=== PATIENT | female | born 1955 | race Hispanic/Latino ===

== ENCOUNTER 2020-08-12 11:40 | Inpatient (IN) | payer MEDICARE ==
[~2020-08-12 11:40] MED LIST: ACETAMINOPHEN 500 MG TAB PO SCH; CELECOXIB 200 MG CAP PO NR; GABAPENTIN 300 MG CAP PO NR
[2020-08-12] MEDS ORDERED: HEPARIN 5,000 UNIT/1 ML VIAL SUB-Q NR (12:45)
[2020-08-12] MEDS ORDERED: FAMOTIDINE 20 MG/2 ML INJ IV ONE (12:47)
[2020-08-12] MEDS ORDERED: HEPARIN 5,000 UNIT/1 ML VIAL ONE (12:47)
--- NOTE | 2020-08-12 12:48 | Anesthesia Consultation ---
Anesthesia Consult and Med Hx Date of service: 08/12/20 - Airway Anesthetic Teeth Evaluation: Good ROM Head & Neck: Adequate Mental/Hyoid Distance: Adequate Mallampati Class: Class II Intubation Access Assessment: Probably Good - Pre-Operative Health Status ASA Pre-Surgery Classification: ASA3 Proposed Anesthetic Plan: General - Pulmonary Hx Smoking: Yes (VAPES EVERYDAY) Hx Sleep Apnea: No - Cardiovascular System Hx Coronary Artery Disease: No (high cholesterol) - Central Nervous System Hx Back Pain: Yes (HERNIATED DISK. NO DISK BETWEEN L5-S1) Hx Psychiatric Problems: Yes (depression, sleep disorder) - Gastrointestinal Hx Gastroesophageal Reflux Disease: Yes (s/p partial pancreatic, colon resection) - Endocrine Hx Renal Disease: Yes (s/p left nephrectomy ) Hx End Stage Renal Disease: No Hx Non-Insulin Dependent Diabetes: Yes (as a result partial pancreatectomy) - Other Systems Hx Alcohol Use: No Hx Substance Use: Yes (VAPES EVERYDAY) Hx Cancer: Yes (left breast CA, s/p bilateral mastectomy, lest axillary lymphanodes removal)
[2020-08-12] MEDS ORDERED: BUPIVACAINE-EPINEPHRINE/PF 0.25%-1:200,000 (30 ML) VIAL INFILTRATI ONE ×4 (12:51→17:13)
[2020-08-12] MEDS ORDERED: BUPIVACAINE/PF (0.5%) 5 MG/1 ML 30 ML VIAL INFILTRATI ONE (12:51)
--- NOTE | 2020-08-12 12:51 | Anesthesia Day of Surgery ---
Anesthesia Day of Surgery - Day of Surgery Patient Examined: Yes Patient H&P Reviewed: Yes Patient is NPO: Yes
[2020-08-12] MEDS ORDERED: BUPIVACAINE/PF (0.25%) 2.5 MG/ML 30 ML VIAL INFILTRATI ONE (12:52)
[2020-08-12] MEDS ORDERED: FAMOTIDINE 20 MG/2 ML INJ IV SCH (13:00)
[2020-08-12] MEDS: LACTATED RINGERS 1,000 ML IV SCH ×2 (13:00→21:17)
[2020-08-12] MEDS ORDERED: ceFAZolin/STERILE WATER 2 GM/20 ML SYRINGE IV NR (13:00)
[2020-08-12] MEDS: MIDAZOLAM 2 MG/2 ML INJ IV NR ×2 (13:02→13:20)
[2020-08-12] MEDS ORDERED: propofoL 200 MG/20 ML VIAL IV ONE (13:44)
[2020-08-12] MEDS ORDERED: HYDROmorphone 1 MG/1 ML INJ ONE (13:44)
[2020-08-12] MEDS ORDERED: ROCURONIUM 50 MG/5 ML INJ IV ONE (13:46)
[2020-08-12] MEDS ORDERED: ONDANSETRON 4 MG/2 ML INJ IV PRN (14:41)
[2020-08-12] MEDS ORDERED: oxyCODONE /ACETAMINOPHEN 5-325MG TAB PO PRN (14:41)
[2020-08-12] MEDS ORDERED: ePHEDrine SULFATE 50 MG/1 ML INJ ONE (15:08)
[2020-08-12] MEDS ORDERED: LIDOCAINE MPF (2%) 20 MG/1 ML VIAL 5 ML ONE (17:06)
[2020-08-12] MEDS ORDERED: GLYCOPYRROLATE 0.4 MG/2 ML INJ ONE (17:06)
[2020-08-12] MEDS ORDERED: NEOSTIGMINE 10MG/10 ML INJ MDV ONE (17:06)
[2020-08-12] MEDS ORDERED: ONDANSETRON 4 MG/2 ML INJ ONE (17:06)
[2020-08-12] MEDS ORDERED: KETOROLAC 30 MG/1 ML INJ ONE (17:06)
--- NOTE | 2020-08-12 17:36 | Procedure Note ---
Date of procedure: 08/12/20 Pre-op diagnosis: Ventral hernia, incarcerated Post-op diagnosis: same Procedure: Open repair with mesh Description of procedure: Pt was placed supine on the OR table. GETA was administered. Spencer catheter was inserted. Abdomen was prepped and draped. A midline incision was made from the subxiphoid area to the umbilicus. The hernia sac was identified and was dissected down to it's fascial margins in all directions. The sac was incised and was found to contain incarcerated omentum. The omentum and small bowel were freed from the hernia sac and the anterior abdominal wall. The hernia sac was incised. The above noted mesh was placed within the peritoneal cavity against the abdominal wall fascia. The mesh was secured to the abdominal wall fascia with multiple interrupted sutures of 0- Ethibond which were placed about 1 cm apart about the periphery of the mesh. Wound was irrigated with warm saline. SQ tissue was approximated with a running suture of 3-0 Vicryl. Skin was approximated with hero and a running suture of 4-0 Nylon. Skin was dressed with a sterile absorbent dressing. Pt tolerated the procedure well. Pt was extubated in the OR and was taken to PACU in stable condition. Implants: Ventrio ST Hernia Patch, 13.8 X 17.8 cm, Lot [id number], exp 12/01/2021 Anesthesia: GETA Surgeon: YARA TINSLEY Estimated blood loss: minimal Pathology: list (Hernia sac) Specimen disposition: to lab Condition: stable Disposition: PACU
[2020-08-12] MEDS ORDERED: ACETAMINOPHEN 325 MG TAB PO PRN (17:41)
[2020-08-12] MEDS: HYDROmorphone 1 MG/1 ML INJ IV PRN ×4 (17:47→18:35)
--- NOTE | 2020-08-12 18:49 | Post Anesthesia Evaluation ---
- Post Anesthesia Evaluation Patient Participated: Yes Airway Patent: Yes Stable Respiratory Function: Yes Nausea/Vomiting: No Temp > 96.8F: Yes Pain Manageable: Yes Adequeate Hydration: Yes Anesthesia Complications: No
[2020-08-12] MEDS ORDERED: DEXTROSE 50% IN WATER (25GM) 50 ML SYRINGE IV PRN (20:05)
--- NOTE | 2020-08-12 20:05 | Consultation ---
History of Present Illness - Reason for Consult Consult date: 08/12/20 Diabetes Requesting physician: YARA BAIN - History of Present Illness 64 YO Female with DM, Nicotine Dependence, LDD, Depression. Consult placed by Dr. Bain for Diabetes. Patient seen and evaluated in her room. Patient denies fever, chills, chest pain, palpitation, productive cough, skin rash, recent ill contacts, or known exposure to COVID-19. No prior admission for review. No reported nursing events. Patient appears comfortable. Past History Past Medical History: diabetes, other Past Surgical History: hernia repair, bowel surgery, Other (Nephrectomy, bilateral mastectomy,) Social history: single, smoking. denies: alcohol abuse, prescription drug abuse Family history: hypertension Medications and Allergies Allergies Allergy/AdvReac Type Severity Reaction Status Date / Time ciprofloxacin [From Cipro] AdvReac Itching Verified 08/12/20 12:27 Home Medications Medication Instructions Recorded Confirmed Last Taken Type Atorvastatin (Nf) [Lipitor (Nf)] 10 mg PO QHS 08/05/20 08/05/20 08/11/20 History FLUoxetine HCL [Prozac] 20 mg PO DAILY 08/05/20 08/05/20 08/11/20 History LORazepam [Lorazepam] 0.5 mg PO DAILY 08/05/20 08/05/20 08/11/20 History Zolpidem Tartrate [Ambien CR] 12.5 mg PO QHS 08/05/20 08/05/20 08/11/20 History metFORMIN [Glucophage] 500 mg PO BID 08/05/20 08/05/20 08/11/20 History Active Meds: Active Medications Acetaminophen (Acetaminophen 500 Mg Tab) 1,000 mg PO PREOP MAN[place] Stop: 08/12/20 23:00 Last Admin: 08/12/20 12:55 Dose: 1,000 mg Documented by: Acetaminophen (Acetaminophen 325 Mg Tab) 650 mg PO Q6H PRN PRN Reason: Pain, Mild (1-3) Famotidine (Famotidine 20 Mg/2 Ml Inj) 20 mg IV ONCE [place] Stop: 08/12/20 23:50 Last Admin: 08/12/20 13:15 Dose: 20 mg Documented by: Gabapentin (Gabapentin 300 Mg Cap) 300 mg PO PREOP NR Stop: 08/12/20 23:00 Last Admin: 08/12/20 12:55 Dose: 300 mg Documented by: Heparin Sodium (Porcine) (Heparin 5,000 Unit/1 Ml Vial) 5,000 unit SUB-Q Q12HR [place] Lactated Ringer's (Lactated Ringers) 1,000 mls @ 100 mls/hr IV DIRECT [place] Stop: 08/12/20 23:59 Last Admin: 08/12/20 13:00 Dose: 100 mls/hr Documented by: Cefazolin Sodium 2 gm/ Sodium (Chloride) 100 mls @ 200 mls/hr IV Q8H [place]; Protocol Midazolam HCl (Midazolam 2 Mg/2 Ml Inj) 2 mg IV PREOP NR Stop: 08/12/20 23:00 Last Admin: 08/12/20 13:20 Dose: 2 mg Documented by: Morphine Sulfate (Morphine 4 Mg/1 Ml Inj) 4 mg IV Q3H PRN PRN Reason: Pain , Severe (7-10) Ondansetron HCl (Ondansetron 4 Mg/2 Ml Inj) 4 mg IV Q8H PRN PRN Reason: Nausea And Vomiting Review of Systems Constitutional: no weight loss, no weight gain, no fever, no sweats Ears, nose, mouth and throat: no ear pain, no tinnitis, no nose pain, no nasal discharge Breasts: no change in shape, no swelling, no mass Cardiovascular: no chest pain, no palpitations, no rapid/irregular heart beat, no syncope Respiratory: no cough, no cough with sputum, no shortness of breath Gastrointestinal: no abdominal pain, no vomiting, no constipation, no change in bowel habits, no hematemesis Genitourinary Female: no pelvic pain, no flank pain, no dysuria, no urgency Rectal: no pain, no incontinence, no bleeding Musculoskeletal: no neck stiffness, no neck pain, no arm numbness/tingling, no low back pain Integumentary: no rash, no pruritis, no sores, no wounds, no jaundice Neurological: no paralysis, no parathesias, no tingling, no seizures, no tremors Psychiatric: no anxiety, no change in sleep habits, no insomnia, no suicidal ideation, no disorientation, no hallucinations Endocrine: no cold intolerance, no heat intolerance, no excessive thirst, no nocturia Hematologic/Lymphatic: no easy bruising, no easy bleeding Allergic/Immunologic: no allergic rhinitis Exam - Constitutional Vitals: Temp Pulse Resp BP Pulse Ox 97.4 F L 99 H 12 111/72 98 08/12/20 19:15 08/12/20 19:30 08/12/20 19:30 08/12/20 19:30 08/12/20 19:30 General appearance: Present: no acute distress, well-nourished - EENT Eyes: Present: PERRL ENT: hearing intact, clear oral mucosa - Neck Neck: Present: supple, normal ROM - Respiratory Respiratory effort: normal Respiratory: bilateral: CTA - Cardiovascular Heart Sounds: Present: S1 & S2. Absent: rub, click - Extremities Extremities: pulses symmetrical, No edema Peripheral Pulses: within normal limits - Abdominal General gastrointestinal: Present: soft, non-tender, non-distended, normal bowel sounds Female genitourinary: Present: normal - Integumentary Integumentary: Present: clear, warm, dry - Musculoskeletal Musculoskeletal: gait normal, strength equal bilaterally - Psychiatric Psychiatric: appropriate mood/affect, intact judgment & insight - Neurologic Neurologic: CNII-XII intact, moves all extremities Results - Labs Labs: Abnormal lab results 08/12/20 08/12/20 Range/Units 13:12 17:44 POC Glucose 109 H 153 H (70-105) mg/dL Assessment and Plan - Patient Problems (1) Diabetes Current Visit: Yes Status: Acute Plan to address problem: Consistent carbohydrate diet, sliding scale insulin therapy, hypoglycemia protocol, Accu-Chek (2) Nicotine dependence Current Visit: Yes Status: Acute Plan to address problem: Supportive care, behavior change counseling, +15 minutes. (3) Lumbar disc disease Current Visit: Yes Status: Acute Plan to address problem: Pain control, supportive care.
[2020-08-12] MEDS: MORPHINE 4 MG/1 ML INJ IV PRN ×3 (20:50→23:53)
[2020-08-12] MEDS: ONDANSETRON 4 MG/2 ML INJ IV PRN (20:54)
[2020-08-12] MEDS: ZOLPIDEM 5 MG TAB PO SCH (21:24)
[2020-08-12] MEDS: HEPARIN 5,000 UNIT/1 ML VIAL SUB-Q SCH (21:25)
[2020-08-12] MEDS ORDERED: ZOLPIDEM TARTRATE 12.5 MG PO SCH (22:00)
[2020-08-13] MEDS: INSULIN LISPRO 100 UNIT/ML SUB-Q SCH ×4 (04:21→18:17)
[2020-08-13] MEDS: MORPHINE 4 MG/1 ML INJ IV PRN ×6 (04:50→23:18)
[2020-08-13] MEDS: ONDANSETRON 4 MG/2 ML INJ IV PRN ×2 (04:59→16:08)
[2020-08-13 07:20] LABS: Basophils # (Auto) 0.1 K/mm3 (0.0-0.1); Basophils % (Auto) 0.5 % (0.0-1.8); Eosinophils % (Auto) 0.3 % (0.0-4.3); Hematocrit 34.6 % (30.3-42.9); Hemoglobin 11.5 gm/dl (10.1-14.3); Lymphocytes % (Auto) 16.7 % (13.4-35.0); Mean Corpuscular HGB Conc 33 % (30-34); Mean Corpuscular Volume 88 fl (79-97); Monocytes % (Auto) 8.7 % (0.0-7.3); Platelet Count 340 K/mm3 (140-440); Red Blood Count 3.95 M/mm3 (3.65-5.03); Red Cell Distribution Width 13.6 % (13.2-15.2)
[2020-08-13 07:40] LABS: Blood Urea Nitrogen 14 mg/dL (7-17); Calcium 8.7 mg/dL (8.4-10.2); Hemolysis Index 6
[2020-08-13 07:51] LABS: BUN/Creatinine Ratio 23
[2020-08-13] MEDS: FLUoxetine 20 MG CAP PO SCH (11:05)
[2020-08-13] MEDS: LORazepam 0.5 MG TAB PO SCH (11:05)
[2020-08-13] MEDS: HEPARIN 5,000 UNIT/1 ML VIAL SUB-Q SCH ×2 (11:05→21:27)
[2020-08-13] MEDS ORDERED: METOCLOPRAMIDE 10 MG/2 ML INJ IV PRN (11:22)
[2020-08-13] MEDS: SODIUM CHLORIDE 0.9% 1000 ML 1,000 ML IV SCH ×2 (11:46→21:32)
[2020-08-13] MEDS: oxyCODONE /ACETAMINOPHEN 5-325MG TAB PO PRN (13:29)
--- NOTE | 2020-08-13 16:32 | Progress Note ---
Assessment and Plan - Patient Problems (1) Ventral hernia without obstruction or gangrene Current Visit: Yes Status: Acute Plan to address problem: 1) Ambulate in halls qid. 2) FLD 3) Possibly home tomorrow. Subjective Date of service: 08/13/20 Patient Reports: Positive: no new complaints, still having pain, tolerating liquids well Objective Vital Signs - 12hr 08/13/20 08/13/20 08/13/20 05:12 07:48 11:00 Temperature 98.4 F 99.0 F 98.1 F Pulse Rate 103 H 97 H 87 Respiratory 19 18 18 Rate Blood Pressure 99/61 91/60 91/52 O2 Sat by Pulse 94 98 96 Oximetry 08/13/20 15:51 Temperature 100.2 F H Pulse Rate 90 Respiratory 18 Rate Blood Pressure 104/62 O2 Sat by Pulse 90 Oximetry - Abdomen soft, bowel sounds normal (Appropriately TTP.) - Labs 08/13/20 07:01 08/13/20 07:01 Diabetes panel 08/13/20 Range/Units 07:01 Sodium 137 (137-145) mmol/L Potassium 4.5 (3.6-5.0) mmol/L Chloride 102.5 (98-107) mmol/L Carbon Dioxide 26 (22-30) mmol/L BUN 14 (7-17) mg/dL Creatinine 0.6 (0.6-1.2) mg/dL Glucose 172 H (65-100) mg/dL Calcium 8.7 (8.4-10.2) mg/dL Calcium panel 08/13/20 Range/Units 07:01 Calcium 8.7 (8.4-10.2) mg/dL Pituitary panel 08/13/20 Range/Units 07:01 Sodium 137 (137-145) mmol/L Potassium 4.5 (3.6-5.0) mmol/L Chloride 102.5 (98-107) mmol/L Carbon Dioxide 26 (22-30) mmol/L BUN 14 (7-17) mg/dL Creatinine 0.6 (0.6-1.2) mg/dL Glucose 172 H (65-100) mg/dL Calcium 8.7 (8.4-10.2) mg/dL Adrenal panel 08/13/20 Range/Units 07:01 Sodium 137 (137-145) mmol/L Potassium 4.5 (3.6-5.0) mmol/L Chloride 102.5 (98-107) mmol/L Carbon Dioxide 26 (22-30) mmol/L BUN 14 (7-17) mg/dL Creatinine 0.6 (0.6-1.2) mg/dL Glucose 172 H (65-100) mg/dL Calcium 8.7 (8.4-10.2) mg/dL
--- NOTE | 2020-08-13 16:44 | Progress Note ---
Assessment and Plan -- Diabetes type II Consistent carbohydrate diet, sliding scale insulin therapy, hypoglycemia protocol, Accu-Chek -- Nicotine dependence Supportive care, behavior change counseling, +15 minutes. --Lumbar disc disease Pain control, supportive care --Nausea vomiting, continue Zofran will also add reglan -- Ventral hernia without obstruction or gangrene status post surgical repair 1) Ambulate in halls qid. 2) FLD 3) Possibly home tomorrow. Subjective Date of service: 08/13/20 Interval history: Patient seen and examined. Medical records and medication list reviewed. No acute event overnight noted by the RN. Patient denies any chest pain or difficulty breathing. Complains of abdominal wall pain on the surgical area and nausea Discussed plan of care at bedside with patient. Objective - Exam Narrative Exam: GENERAL: well-developed and well-nourished white female lying on bed appeared to be in no discomfort. HEENT: Normocephalic. Atraumatic. No conjunctival congestion or icterus. Patient has moist mucous membranes. NECK: Supple. Trachea midline. CHEST/LUNGS: Clear to auscultated bilaterally, breathing nonlabored. No wheezes crackles or rhonchi. HEART/CARDIOVASCULAR: Regular in rate and rhythm. S1 and S2 positive. ABDOMEN: Abdomen is soft, surgical dressing on place. Patient has normal bowel sounds. SKIN: There is no rash. Warm and dry. NEURO: No focal motor deficit. Follows command. MUSCULOSKELETAL: No joint effusion or tenderness. EXTRIMITY: No edema, no cyanosis or clubbing. PSYCH: Cooperative. - Constitutional Vitals: Vital Signs - 12hr 08/13/20 08/13/20 08/13/20 05:12 07:48 11:00 Temperature 98.4 F 99.0 F 98.1 F Pulse Rate 103 H 97 H 87 Respiratory 19 18 18 Rate Blood Pressure 99/61 91/60 91/52 O2 Sat by Pulse 94 98 96 Oximetry 08/13/20 15:51 Temperature 100.2 F H Pulse Rate 90 Respiratory 18 Rate Blood Pressure 104/62 O2 Sat by Pulse 90 Oximetry - Labs CBC & Chem 7: 08/13/20 07:01 08/13/20 07:01 Labs: Abnormal lab results 08/12/20 08/12/20 08/13/20 Range/Units 17:44 21:51 06:23 WBC (4.5-11.0) K/mm3 [place] % (Auto) (0.0-7.3) % [place] # (Auto) (0.0-0.8) K/mm3 Seg Neutrophils % (40.0-70.0) % Seg Neutrophils # (1.8-7.7) K/mm3 Glucose (65-100) mg/dL POC Glucose 153 H 141 H 184 H (70-105) mg/dL 08/13/20 08/13/20 08/13/20 Range/Units 07:01 07:01 12:16 WBC 11.8 H (4.5-11.0) K/mm3 [place] % (Auto) 8.7 H (0.0-7.3) % [place] # (Auto) 1.0 H (0.0-0.8) K/mm3 Seg Neutrophils % 73.8 H (40.0-70.0) % Seg Neutrophils # 8.7 H (1.8-7.7) K/mm3 Glucose 172 H (65-100) mg/dL POC Glucose 112 H (70-105) mg/dL
[2020-08-13] MEDS: ZOLPIDEM 5 MG TAB PO SCH (21:26)
[2020-08-14] MEDS: INSULIN LISPRO 100 UNIT/ML SUB-Q SCH ×3 (00:16→12:32)
[2020-08-14] MEDS: MORPHINE 4 MG/1 ML INJ IV PRN ×3 (04:22→17:05)
[2020-08-14] MEDS: HEPARIN 5,000 UNIT/1 ML VIAL SUB-Q SCH ×2 (07:58→10:00)
[2020-08-14] MEDS: FLUoxetine 20 MG CAP PO SCH ×2 (07:58→10:00)
[2020-08-14] MEDS: LORazepam 0.5 MG TAB PO SCH ×2 (07:58→10:00)
[2020-08-14] MEDS: oxyCODONE /ACETAMINOPHEN 5-325MG TAB PO PRN (12:53)
[2020-08-14 13:56] VITALS: BP 111/60
--- NOTE | 2020-08-14 14:03 | Discharge Summary ---
Providers - Providers Date of Admission: 08/12/20 17:36 Date of discharge: 08/14/20 Attending physician: YARA BAIN 08/12/20 17:48 Consult to Physician [CONS] Routine Comment: Consulting Provider: ISABELLA BRAN Physician Instructions: Please consult for management of DM/medical issues Reason For Exam: Management of DM and other medical issues Primary care physician: JONY CASPER Hospitalization Hospital course: 64 YO Female with DM, Nicotine Dependence, LDD, Depression admitted for ventral hernia surgery. Consult placed by Dr. Bain for Diabetes. Patient seen and evaluated in her room. Patient is s/p surgical repair of ventral hernia. she tolerated the surgery well. Post-op care provided by Dr Bain. She is now tolerating diet and able to ambulate. She is being discharge by dr Bain. and she will f/u with him as scheduled. Disposition: TO HOME OR SELFCARE Final Discharge Diagnosis (Prints w/discharge instructions): -- Diabetes type II. -- Nicotine dependence. --Lumbar disc disease. --Nausea vomiting, continue Zofran. -- Ventral hernia without obstruction or gangrene status post surgical repair Time spent for discharge: 34 minutes Core Measure Documentation - Palliative Care Palliative Care/ Comfort Measures: Not Applicable - Core Measures Any of the following diagnoses?: none Exam - Physical Exam Narrative exam: GENERAL: well-developed and well-nourished white female lying on bed appeared to be in no discomfort. HEENT: Normocephalic. Atraumatic. No conjunctival congestion or icterus. Patient has moist mucous membranes. NECK: Supple. Trachea midline. CHEST/LUNGS: Clear to auscultated bilaterally, breathing nonlabored. No wheezes crackles or rhonchi. HEART/CARDIOVASCULAR: Regular in rate and rhythm. S1 and S2 positive. ABDOMEN: Abdomen is soft, surgical dressing on place. Patient has normal bowel sounds. SKIN: There is no rash. Warm and dry. NEURO: No focal motor deficit. Follows command. MUSCULOSKELETAL: No joint effusion or tenderness. EXTRIMITY: No edema, no cyanosis or clubbing. PSYCH: Cooperative. - Constitutional Vitals: Temp Pulse Resp BP Pulse Ox 99.0 F 99 H 16 111/60 88 08/14/20 11:33 08/14/20 11:33 08/14/20 11:33 08/14/20 11:33 08/14/20 11:33 Plan Activity: advance as tolerated Weight Bearing Status: Non-Weight Bearing Diet: low fat, low salt Wound: per your surgeon's advice Additional Instructions: Follow-up with Dr. Bain in 2 weeks Follow up with: JONY CASPER MD [Primary Care Provider] - 7 Days YARA BAIN MD [Staff Physician] - 7 Days Prescriptions: oxyCODONE /ACETAMINOPHEN [Percocet 5/325 mg] 1 tab PO Q6H PRN #14 tablet PRN Reason: Pain, Moderate (4-6)
== END 2020-08-14 19:04 | disposition home or self-care (01) | DRG 355 ==
LOC: OR 11:40 → 3A 17:36 → 3B-SURG 19:52
PROVIDERS: ADMIT Surgery; ATTEND Surgery
PROC: 0WUF0JZ Supplement Abdominal Wall with Synthetic Substitute, Open Approach (ICD-10-PCS; principal; 2020-08-12)
DX: K43.6 Other and unspecified ventral hernia with obstruction, without gangrene (principal); F17.200 Nicotine dependence, unspecified, uncomplicated; F32.9 Major depressive disorder, single episode, unspecified; E11.9 Type 2 diabetes mellitus without complications; M51.36 Other intervertebral disc degeneration, lumbar region; Z85.038 Personal history of other malignant neoplasm of large intestine; Z90.5 Acquired absence of kidney; Z85.3 Personal history of malignant neoplasm of breast; Z90.13 Acquired absence of bilateral breasts and nipples; Z82.49 Family history of ischemic heart disease and other diseases of the circulatory system; Z71.6 Tobacco abuse counseling; Z88.1 Allergy status to other antibiotic agents
CPT/HCPCS: 36415; 80048; 82962; 85025; 88302; G0378; A9270-GY; C1781; J0690; J1170; J1644; J1815; J1885; J2250; J2270; J2405; J2704; J2710; J2765; J7030; J7120